=== PATIENT | male | born 1980 | race Caucasian/White ===

== ENCOUNTER 2016-10-07 06:40 | Inpatient (IN) | payer SELFPAY ==
--- NOTE | ~2016-10-07 | OP ---
[place] Of [place] [address] [place]. [address] NAME: MERI EUGENE : 82 STATUS : ADM IN PAT#: [id number] AGE: 36 ADM/REG DATE : 10/07/16 MR#: [id number] REPORT SERV DATE: 10/07/16 DICTATED BY: HARINDER WALKER DATE: 10/07/16 REPORT STATUS : Draft TRANSCRIBED BY: MODL DATE: 10/07/16 DATE OF PROCEDURE: 10/07/2016 PREOPERATIVE DIAGNOSIS: Large pericardial effusion. POSTOPERATIVE DIAGNOSIS: Large pericardial effusion. PROCEDURE: Subxiphoid pericardial window. SURGEON: Harinder Walker M.D. PRODUCTION HELPER: Dashawn. ANESTHESIA: Rodriguez. FINDINGS: Approximately 500 mL of milky pink fluid. SPECIMEN: Fluid for micro and cytology and pericardium for pathology. DRAINS: #19 Satya x1. COMPLICATIONS: None. CONDITION: Improved to PACU. PROCEDURE: After informed consent was obtained from the patient, he was brought to the operating room, laid in supine position, and general anesthesia was induced. Transesophageal echocardiogram was performed which confirmed a large circumferential pericardial effusion. The patient was prepped and draped in the normal fashion. A vertical incision was made in the subxiphoid area and dissection carried down underneath the sternum. The sternum was retracted. The Bovie electrocautery used to enter the pericardial sac. There was a quick menjivar of milky pink fluid, that was evacuated, placed into two different Lukens traps. A #19 Satya was placed into the pericardial sac by remote incision and approximate aung size of pericardium was cut for pericardial analysis. The skin, subcutaneous, and subcuticular tissue were then closed using running Vicryl and Monocryl sutures. Overall, the patient tolerated the procedure well and was transported to PACU in stable condition. CCR/MODL Harinder Walker M.D. / [id number] [facility] [place] [address] [place]. [address] NAME: MERI EUGENE : 82 STATUS : ADM IN PAT#: [id number] AGE: 36 ADM/REG DATE : 10/07/16 MR#: [id number] REPORT SERV DATE: 10/07/16 DICTATED BY: HARINDER WALKER DATE: 10/07/16 REPORT STATUS : Draft TRANSCRIBED BY: MODL DATE: 10/07/16 CC: Alycia Patricio MD
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
--- NOTE | ~2016-10-07 | CN ---
Consultation Report [facility] [address] [place]. [address] NAME: MERI EUGENE : 82 STATUS : ADM IN PAT#: [id number] AGE: 36 ADM/REG DATE : 10/07/16 MR#: [id number] REPORT SERV DATE: 10/07/16 DICTATED BY: HARINDER WALKER DATE: 10/07/16 REPORT STATUS : Draft TRANSCRIBED BY: MODDarion DATE: 10/07/16 CONSULTATION NOTE DATE OF CONSULTATION: 10/07/2016 REASON FOR CONSULT: Large pericardial effusion with tamponade. HISTORY: The patient is a 36-year-old male with history of IV drug abuse, who presented to the [facility] Emergency Department after three days of chest pain. He describes this as 8/10 chest pain with shortness of breath worse when sitting up. He has also described some fever, chills, and presyncopal episodes. After CT scan was performed which showed a large pericardial effusion, an echo followed this up showing pre-tamponade type symptoms. We are therefore consulted for emergency pericardial window. PAST MEDICAL HISTORY: Significant for hip fracture. PAST SURGICAL HISTORY: None. ALLERGIES: NO KNOWN DRUG ALLERGIES. HOME MEDICATIONS: Hydrocodone. SOCIAL HISTORY: He uses marijuana speed and IV drug use through his right forearm. Alcohol yes and smoked a half pack a day. FAMILY HISTORY: Noncontributory. REVIEW OF SYSTEMS: Otherwise negative that which was stated in the HPI. PHYSICAL EXAMINATION: VITAL SIGNS: He is currently afebrile, tachycardic with a heart rate of 121 and mildly hypotensive at 90/65. HEENT: Normocephalic, atraumatic. Overall appearance is cachectic. CHEST: Clear to auscultation bilaterally. HEART: Distant heart sounds. ABDOMEN: Soft, nontender, nondistended. EXTREMITIES: Warm with 1+ distal pulses. No clubbing, cyanosis, or edema. MUSCULOSKELETAL: Grossly intact. NEUROLOGIC: Grossly intact. STUDIES: I personally reviewed both his CT scan and an echocardiogram which showed a large 4 5 cm circumferential pericardial effusion with right ventricular collapse. Consultation Report [facility] [address] [place]. [address] NAME: MERI EUGENE : 82 STATUS : ADM IN PAT#: [id number] AGE: 36 ADM/REG DATE : 10/07/16 MR#: [id number] REPORT SERV DATE: 10/07/16 DICTATED BY: HARINDER WALKER DATE: 10/07/16 REPORT STATUS : Draft TRANSCRIBED BY: LEAH DATE: 10/07/16 IMPRESSION: Large pericardial effusion. PLAN: We will be taking him to the operating room for emergency subxiphoid pericardial window. I have explained all risks, benefits, and alternatives of surgery with him. He understands and wishes to proceed. CCR/LEAH Harinder Walker M.D. / [id number] CC: Alycia Patricio MD
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
--- NOTE | ~2016-10-07 | DS ---
Discharge Summary [facility] [address] [place]. [address] NAME: MERI EUGENE : 82 STATUS : DIS IN PAT#: [id number] AGE: 36 ADM/REG DATE : 10/07/16 MR#: [id number] REPORT SERV DATE: 10/14/16 DICTATED BY: MICHELLE GONZALEZ DATE: 10/13/16 REPORT STATUS : Draft TRANSCRIBED BY: MODL DATE: 10/13/16 ADMISSION DATE: 10/07/2016 DISCHARGE DATE: 10/13/2016 DISCHARGE DIAGNOSES: 1. Cardiac tamponade status post pericardial window by Dr. Gregory. 2. Large pericardial effusion, etiology is more likely inflammatory rather than infection, all the cultures are negative except a few growths from the broth with Enterococci is thought to be contamination. The patient has been on vancomycin during this hospitalization for about a week. 3. Increased liver function tests. 4. Polysubstance abuse. HISTORY OF PRESENT ILLNESS: This is a 36-year-old male patient, initially admitted to hospital with a large pericardial effusion with a tamponade physiology. Please see dictated H and P. HOSPITAL COURSE: He was admitted to hospital with a pericardial effusion with a history of IV drug use. The patient was seen by Dr. Ferrer and also consulted Dr. Gregory for tamponade physiology after his echocardiogram showed right side collection. Also at the same time, seen by Dr. Wild for any concern for the infectious etiology. The patient does have a mild elevation of leukocytosis. The patient was put on empirically antibiotics. He had a CAPRI. CAPRI did not show any evidence of vegetation, it showed normal heart function as well. Interestingly, his all cultures have been negative. He was kept on vancomycin treatment until the final culture came. Final culture is negative; however, a few growths of enterococci from the broth is thought to be contamination. Due to the etiology is not being so sure for the infection, inflammatory markers were sent. Inflammatory markers came back positive with MATT greater than 1:640, and rheumatoid factors positive as well. The other more blood works are still pending at this point. The patient's hepatitis panel is negative, HIV is also negative. More likely, the patient has this serositis because of the inflammatory disease. The patient has been treated and doing well, and met maximize inpatient benefit, so he will be discharged to home without any continuing antibiotics. We will like to setup an appointment with the Rheumatology for followup. The patient also has been informed to look for Rheumatology evaluation. This weekend the patient will be discharged to home, but our staff will contact the Rheumatology Associate, and try to give him an appointment. However, has a hardship that the patient has no insurance for his healthcare. Again, I was trying to set up an appointment with Rheumatology Associate and we will contact the patient. We discontinued antibiotics on discharge. The patient can continue Advil and home medications. TIME SPENT: More than 30 minutes on discharge and education. Discharge Summary [place] [id number] [place]. [address] NAME: MERI EUGENE : 82 STATUS : DIS IN PAT#: [id number] AGE: 36 ADM/REG DATE : 10/07/16 MR#: [id number] REPORT SERV DATE: 10/14/16 DICTATED BY: MICHELLE GONZALEZ DATE: 10/13/16 REPORT STATUS : Draft TRANSCRIBED BY: LEAH DATE: 10/13/16 SHAKA/LEAH Michelle Gonzalez M.D. / [id number] CC: Michelle Gonzalez M.D.
--- NOTE | ~2016-10-07 | TEE ---
Transesophageal Echocardiogram [place] [id number] [facility] [place]. [address] NAME: MERI EUGENE : 82 STATUS : ADM IN [facility]#: [id number] AGE: 36 ADM/REG DATE : 10/07/16 MR#: [id number] REPORT SERV DATE: 10/10/16 DICTATED BY: DATE: REPORT STATUS : Draft TRANSCRIBED BY: MODL DATE: 10/10/16 CHIEF COMPLAINT/REASON FOR STUDY: Bacteremia. Written informed consent obtained. Please see chart for documentation. PROCEDURE: With the assistance of my Anesthesia colleagues, Mr. Eugene was sedated for the procedure. The transesophageal probe was placed with one attempt without complications. 1. The aortic valve was trileaflet and opened adequately. There was no significant aortic valvular regurgitation. There was no evidence of valvular vegetations or stenosis. 2. The left ventricular systolic function was grossly normal with a visually estimated ejection fraction greater than 50%. The left ventricular chamber size appeared normal. 3. The mitral and tricuspid valve leaflets open normally. There was no evidence of mitral or tricuspid valvular vegetations. There was trivial mitral regurgitation via color flow Doppler. There was trivial tricuspid regurgitation. 4. The left atrium and right atrium were both visualized. There was no evidence of right atrium, left atrium, or left atrial appendage thrombus present. 5. The right ventricle appeared normal in size and systolic function. 6. The pulmonary valve was well visualized. There was no significant pulmonary valvular vegetations noted. 7. There was a trivial pericardial effusion without hemodynamic significance. 8. The left-sided pleural effusion was noted. IMPRESSION: 1. Normal left ventricular systolic function with a visually estimated ejection fraction greater than 50%. 2. No evidence of vegetations or infected endocarditis. 3. Left-sided pleural effusion as detailed above. [facility]/MODL Jaja Martin M.D. / [id number] CC: Michelle Gonzalez M.D.
--- NOTE | ~2016-10-07 | CN ---
Consultation Report [place] [id number] [facility] [place]. [address] NAME: MILAD EUGENE : 82 STATUS : ADM IN [facility]#: [id number] AGE: 36 ADM/REG DATE : 10/07/16 MR#: [id number] REPORT SERV DATE: 10/07/16 DICTATED BY: ALEXEY FERRER DATE: 10/07/16 REPORT STATUS : Draft TRANSCRIBED BY: MODL DATE: 10/07/16 CARDIOLOGY CONSULTATION DATE OF CONSULTATION: Requested by Dr. Patricio with the hospitalist service. INDICATIONS: Pericardial effusion and injection drug use. HISTORY OF PRESENT ILLNESS: Milad Eugene is a 36-year-old man who presented to the emergency room today with severe chest pain and shortness of breath. He was found to be tachycardic. His speech is somewhat difficult to understand. He reports symptoms have been ongoing for several days. He has a history of polysubstance abuse and is apparently actively using drugs. Pain does appear to be worsened with change in position and he feels better sitting in an upright leaning forward position. He has not had syncope. He also complains of constipation and some chills. PAST MEDICAL HISTORY: Injection drug use. SOCIAL HISTORY: Active drug use and smokes cigarettes. Unclear whether he drinks alcohol or not. FAMILY HISTORY: Noncontributory to the present issue. REVIEW OF SYSTEMS: As per the HPI. Otherwise, all the review of systems is negative. PRESENT MEDICATIONS: Albuterol, aspirin, hydrocodone, and Advil. ALLERGIES: NONE KNOWN. PHYSICAL EXAMINATION: VITAL SIGNS: Blood pressure 117/75, heart rate is 137, respiratory rate is 22, and oxygen saturations 100% on presentation on room air, then reported more recently 98% on 2 L. 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 EYES: Sclerae anicteric, no arcus senilis. MOUTH: Oral mucosa moist, lips acyanotic. NECK: Jugular venous pressure normal, no carotid bruits. LUNGS: Diminished breath sounds in the bases. Poor inspiratory effort. CARDIAC: Regular rhythm. Tachycardic. ABDOMEN: Soft, nondistended, nontender. EXTREMITIES: No edema. SKIN: Warm and dry. NEURO/PSYCH: Alert and oriented, nonfocal, mood appropriate. Consultation Report [place] [id number] [facility] [place]. [address] NAME: MILAD EUGENE : 82 STATUS : ADM IN PAT#: [id number] AGE: 36 ADM/REG DATE : 10/07/16 MR#: [id number] REPORT SERV DATE: 10/07/16 DICTATED BY: ALEXEY FERRER DATE: 10/07/16 REPORT STATUS : Draft TRANSCRIBED BY: MODL DATE: 10/07/16 DATA: White count 13.7, hemoglobin 12.7, platelets 504. Potassium 3.6, magnesium 1.9, creatinine 1.0. Troponin is negative. EKG is sinus tachycardia at 132 beats per minute with nonspecific T changes. Chest x-ray shows cardiomegaly. CTA chest shows no PE, but there was a large pericardial effusion, 3 cm at maximum dimension with pericardial enhancement consistent with inflammation. IMPRESSION: 1. Large pericardial effusion. The patient with chest pain, shortness of breath, and sinus tachycardia. 2. Injection drug abuse/polysubstance abuse. RECOMMENDATIONS: Echocardiogram today. CT Surgery consult. Consider drain. Blood cultures. Discussed with the patient. All questions answered. VINICIO/LEAH Alexey Ferrer M.D. / [id number] CC: Alycia Patricio MD NO PCP
[2016-10-07 06:37] LABS: BASOPHILS 0.1 %; BASOPHILS ABSOLUTE 0.01 10/3/uL (0.0-0.16); EOSINOPHILS 0.1 %; EOSINOPHILS ABSOLUTE 0.02 10/3/uL (0.0-0.53); HEMATOCRIT 37.4 % (40.0-51.0); HEMOGLOBIN 12.7 g/dL (13.6-17.8); IMMATURE GRANULOCYTES 0.2 %; IMMATURE GRANULOCYTES ABSOLUTE 0.03 10/3/uL (0.0-0.11); LYMPHOCYTES 5.1 %; MEAN CORPUSCULAR HEMOGLOB 29.7 pg (26.0-34.0); MEAN CORPUSCULAR VOLUME 87.6 fL (80-100); MEAN PLATELET VOLUME 8.8 fL (9.2-13.0); MONOCYTES 12.9 %; MONOCYTES ABSOLUTE 1.77 10/3/uL (0.21-1.20); NEUTROPHILS 81.6 %; NEUTROPHILS ABSOLUTE 11.16 10/3/uL (2.02-8.40); PLATELET COUNT 504 10/3/uL (150-400); RBC DISTRIBUTION WIDTH 13.2 % (12.0-16.0); RED CELL COUNT 4.27 10/6/uL (4.7-6.1); WHITE BLOOD CELLS 13.7 10/3/uL (4.5-10.5)
[2016-10-07 06:38] LABS: ER CBC TAT 0 Hrs 00 Mins; MANUAL DIFF NO %
[2016-10-07 06:46] LABS: INTERNATIONAL NORMAL RATI 1.3 UNITS (-); PARTIAL THROMBO TIME 38.4 SEC (22.5-37.2); PROTIME (NOT ORD) 15.7 SEC (12.0-14.5)
[2016-10-07 06:55] LABS: BUN (BLOOD UREA NITROGEN) 12 MG/DL (6-23); CALCIUM, SERUM 8.6 MG/DL (8.5-10.4); CHEST PAIN PROFILE TAT 0 Hrs 00 Mins; CHLORIDE, SERUM 97 MMOL/L (96-112); CO2 (CARBON DIOXIDE) 27 MMOL/L (24-34); GFR AFRICAN AMERICAN 113 ML/MIN (>=60); GFR NON AFRICAN AMERICAN 97 ML/MIN (>=60); GLUCOSE, SERUM 149 MG/DL (60-99); POTASSIUM, SERUM 3.6 MMOL/L (3.5-5.3); SODIUM, SERUM 136 MMOL/L (135-148); TROPONIN I <0.02 NG/ML (<0.05)
[2016-10-07 06:56] LABS: D-DIMER QUANTITATIVE 6.38 ug/mLFEU (< 0.50)
[2016-10-07] MEDS ORDERED: NORCO1 TA2 PO (09:59)
[2016-10-07] MEDS ORDERED: ADVIL PO (10:00)
[2016-10-07] MEDS ORDERED: PROAIR HFA PO (10:00)
[2016-10-07] MEDS ORDERED: ASAB PO (10:00)
[2016-10-08 04:13] LABS: BASOPHILS 0.1 %; BASOPHILS ABSOLUTE 0.01 10/3/uL (0.0-0.16); EOSINOPHILS 0.3 %; EOSINOPHILS ABSOLUTE 0.04 10/3/uL (0.0-0.53); HEMOGLOBIN 11.2 g/dL (13.6-17.8); IMMATURE GRANULOCYTES 0.3 %; IMMATURE GRANULOCYTES ABSOLUTE 0.04 10/3/uL (0.0-0.11); LYMPHOCYTES 10.2 %; LYMPHOCYTES ABSOLUTE 1.41 10/3/uL (0.67-4.30); MEAN CORPUS HGB CONC 33.3 g/dL (32.0-36.0); MEAN CORPUSCULAR HEMOGLOB 28.6 pg (26.0-34.0); MEAN CORPUSCULAR VOLUME 85.9 fL (80-100); MEAN PLATELET VOLUME 8.8 fL (9.2-13.0); MONOCYTES 6.5 %; NEUTROPHILS 82.6 %; NEUTROPHILS ABSOLUTE 11.46 10/3/uL (2.02-8.40); PLATELET COUNT 391 10/3/uL (150-400); RBC DISTRIBUTION WIDTH 13.5 % (12.0-16.0); RED CELL COUNT 3.91 10/6/uL (4.7-6.1); WHITE BLOOD CELLS 13.9 10/3/uL (4.5-10.5)
[2016-10-08 04:14] LABS: HEMATOCRIT 33.6 % (40.0-51.0); MANUAL DIFF NO %
[2016-10-08 04:24] LABS: BUN (BLOOD UREA NITROGEN) 10 MG/DL (6-23); CHLORIDE, SERUM 102 MMOL/L (96-112); CO2 (CARBON DIOXIDE) 25 MMOL/L (24-34); CREATININE 0.95 MG/DL (0.70-1.30); GFR AFRICAN AMERICAN 120 ML/MIN (>=60); GFR NON AFRICAN AMERICAN 103 ML/MIN (>=60); GLUCOSE, SERUM 144 MG/DL (60-99); SODIUM, SERUM 136 MMOL/L (135-148)
[2016-10-09 04:47] LABS: BASOPHILS 0.1 %; BASOPHILS ABSOLUTE 0.01 10/3/uL (0.0-0.16); EOSINOPHILS 0.4 %; EOSINOPHILS ABSOLUTE 0.05 10/3/uL (0.0-0.53); HEMATOCRIT 34.1 % (40.0-51.0); HEMOGLOBIN 11.4 g/dL (13.6-17.8); IMMATURE GRANULOCYTES 0.3 %; IMMATURE GRANULOCYTES ABSOLUTE 0.04 10/3/uL (0.0-0.11); LYMPHOCYTES 11.2 %; LYMPHOCYTES ABSOLUTE 1.34 10/3/uL (0.67-4.30); MEAN CORPUS HGB CONC 33.4 g/dL (32.0-36.0); MEAN CORPUSCULAR HEMOGLOB 29.4 pg (26.0-34.0); MEAN CORPUSCULAR VOLUME 87.9 fL (80-100); MEAN PLATELET VOLUME 8.8 fL (9.2-13.0); MONOCYTES 9.9 %; MONOCYTES ABSOLUTE 1.19 10/3/uL (0.21-1.20); NEUTROPHILS 78.1 %; NEUTROPHILS ABSOLUTE 9.38 10/3/uL (2.02-8.40); PLATELET COUNT 393 10/3/uL (150-400); RBC DISTRIBUTION WIDTH 13.6 % (12.0-16.0); RED CELL COUNT 3.88 10/6/uL (4.7-6.1)
[2016-10-09 04:48] LABS: MANUAL DIFF NO %
[2016-10-09 04:54] LABS: BUN (BLOOD UREA NITROGEN) 10 MG/DL (6-23); CALCIUM, SERUM 7.6 MG/DL (8.5-10.4); CHLORIDE, SERUM 102 MMOL/L (96-112); CO2 (CARBON DIOXIDE) 25 MMOL/L (24-34); CREATININE 0.79 MG/DL (0.70-1.30); GFR AFRICAN AMERICAN 135 ML/MIN (>=60); GFR NON AFRICAN AMERICAN 116 ML/MIN (>=60); POTASSIUM, SERUM 3.8 MMOL/L (3.5-5.3); SODIUM, SERUM 136 MMOL/L (135-148)
[2016-10-09 04:58] LABS: GLUCOSE, SERUM 101 MG/DL (60-99)
[2016-10-10 06:22] LABS: BASOPHILS 0.1 %; BASOPHILS ABSOLUTE 0.02 10/3/uL (0.0-0.16); EOSINOPHILS 0.4 %; EOSINOPHILS ABSOLUTE 0.06 10/3/uL (0.0-0.53); IMMATURE GRANULOCYTES 0.3 %; IMMATURE GRANULOCYTES ABSOLUTE 0.04 10/3/uL (0.0-0.11); LYMPHOCYTES 9.3 %; LYMPHOCYTES ABSOLUTE 1.25 10/3/uL (0.67-4.30); MEAN CORPUS HGB CONC 34.4 g/dL (32.0-36.0); MEAN CORPUSCULAR HEMOGLOB 29.6 pg (26.0-34.0); MEAN PLATELET VOLUME 9.1 fL (9.2-13.0); MONOCYTES 8.4 %; MONOCYTES ABSOLUTE 1.13 10/3/uL (0.21-1.20); NEUTROPHILS 81.5 %; NEUTROPHILS ABSOLUTE 10.92 10/3/uL (2.02-8.40); PLATELET COUNT 400 10/3/uL (150-400); RBC DISTRIBUTION WIDTH 13.9 % (12.0-16.0); RED CELL COUNT 3.72 10/6/uL (4.7-6.1); WHITE BLOOD CELLS 13.4 10/3/uL (4.5-10.5)
[2016-10-10 06:24] LABS: INTERNATIONAL NORMAL RATI 1.2 UNITS (-); PROTIME (NOT ORD) 14.9 SEC (12.0-14.5)
[2016-10-10 06:28] LABS: MANUAL DIFF NO %
[2016-10-10 06:36] LABS: BUN (BLOOD UREA NITROGEN) 10 MG/DL (6-23); CALCIUM, SERUM 7.8 MG/DL (8.5-10.4); CHLORIDE, SERUM 98 MMOL/L (96-112); CO2 (CARBON DIOXIDE) 23 MMOL/L (24-34); CREATININE 0.83 MG/DL (0.70-1.30); GFR AFRICAN AMERICAN 132 ML/MIN (>=60); GFR NON AFRICAN AMERICAN 114 ML/MIN (>=60); GLUCOSE, SERUM 88 MG/DL (60-99); POTASSIUM, SERUM 3.7 MMOL/L (3.5-5.3); SODIUM, SERUM 133 MMOL/L (135-148)
[2016-10-11 06:55] LABS: DIRECT BILIRUBIN 0.2 MG/DL (0.0-0.4); INDIRECT BILIRUBIN(NOT ORDER) 0.4 MG/DL (0.1-0.9); TOTAL BILIRUBIN 0.6 MG/DL (0-1.2); TOTAL PROTEIN 6.4 G/DL (6.0-8.5)
[2016-10-11 10:19] LABS: HEPATITIS B SURFACE ANTIGEN NON-REACTIVE (NON-REACT)
[2016-10-11 10:32] LABS: HEPATITIS C ANTIBODY NON-REACTIVE (NON-REACT)
[2016-10-11 10:33] LABS: HEPATITIS B CORE AB IGM NON-REACTIVE (NON-REAC); HIV COMBO NON-REACTIVE (NON REAC)
[2016-10-11 10:34] LABS: HEP A ANTIBODY IGM NON-REACTIVE (NON-REACT)
[2016-10-12 05:21] LABS: BASOPHILS 0.1 %; BASOPHILS ABSOLUTE 0.01 10/3/uL (0.0-0.16); EOSINOPHILS 0.4 %; EOSINOPHILS ABSOLUTE 0.05 10/3/uL (0.0-0.53); HEMATOCRIT 31.9 % (40.0-51.0); IMMATURE GRANULOCYTES 0.6 %; IMMATURE GRANULOCYTES ABSOLUTE 0.07 10/3/uL (0.0-0.11); LYMPHOCYTES ABSOLUTE 0.75 10/3/uL (0.67-4.30); MEAN CORPUS HGB CONC 34.5 g/dL (32.0-36.0); MEAN CORPUSCULAR HEMOGLOB 29.3 pg (26.0-34.0); MEAN CORPUSCULAR VOLUME 84.8 fL (80-100); MEAN PLATELET VOLUME 9.1 fL (9.2-13.0); MONOCYTES 6.5 %; MONOCYTES ABSOLUTE 0.81 10/3/uL (0.21-1.20); NEUTROPHILS 86.4 %; NEUTROPHILS ABSOLUTE 10.86 10/3/uL (2.02-8.40); PLATELET COUNT 342 10/3/uL (150-400); RBC DISTRIBUTION WIDTH 13.9 % (12.0-16.0); RED CELL COUNT 3.76 10/6/uL (4.7-6.1); WHITE BLOOD CELLS 12.6 10/3/uL (4.5-10.5)
[2016-10-12 05:23] LABS: MANUAL DIFF NO %
[2016-10-12 13:20] LABS: ANA PATTERN SPECKLED; ANA TITER >1:640 TITER
[2016-10-13 04:22] LABS: BASOPHILS 0.1 %; BASOPHILS ABSOLUTE 0.01 10/3/uL (0.0-0.16); EOSINOPHILS 0.2 %; EOSINOPHILS ABSOLUTE 0.02 10/3/uL (0.0-0.53); HEMATOCRIT 32.9 % (40.0-51.0); HEMOGLOBIN 11.5 g/dL (13.6-17.8); IMMATURE GRANULOCYTES 0.7 %; IMMATURE GRANULOCYTES ABSOLUTE 0.09 10/3/uL (0.0-0.11); LYMPHOCYTES 4.6 %; LYMPHOCYTES ABSOLUTE 0.58 10/3/uL (0.67-4.30); MEAN CORPUSCULAR HEMOGLOB 29.6 pg (26.0-34.0); MEAN CORPUSCULAR VOLUME 84.6 fL (80-100); MEAN PLATELET VOLUME 9.7 fL (9.2-13.0); MONOCYTES ABSOLUTE 0.37 10/3/uL (0.21-1.20); NEUTROPHILS 91.4 %; NEUTROPHILS ABSOLUTE 11.42 10/3/uL (2.02-8.40); PLATELET COUNT 317 10/3/uL (150-400); RED CELL COUNT 3.89 10/6/uL (4.7-6.1); WHITE BLOOD CELLS 12.5 10/3/uL (4.5-10.5)
[2016-10-13 04:23] LABS: MANUAL DIFF NO %
[2016-10-13 04:37] LABS: CALCIUM, SERUM 7.5 MG/DL (8.5-10.4); CHLORIDE, SERUM 98 MMOL/L (96-112); CO2 (CARBON DIOXIDE) 25 MMOL/L (24-34); CREATININE 1.03 MG/DL (0.70-1.30); GFR AFRICAN AMERICAN 109 ML/MIN (>=60); GFR NON AFRICAN AMERICAN 94 ML/MIN (>=60); GLUCOSE, SERUM 101 MG/DL (60-99); POTASSIUM, SERUM 3.7 MMOL/L (3.5-5.3); SODIUM, SERUM 135 MMOL/L (135-148)
[2016-10-13 04:38] LABS: BUN (BLOOD UREA NITROGEN) 17 MG/DL (6-23)
[2016-10-13 12:35] LABS: ASCORBIC ACID (UR NOT ORDER) NEG (NEG); BILIRUBIN, URINE NEGATIVE (NEG); KETONE, URINE NEGATIVE (NEG); LEUKOCYTE ESTERASE(NOT OR NEG (NEG); WBC (NOT ORDERED) (RFLEX) 1 (0-5)
[2016-10-15 22:33] LABS: ANCA <1:20 (()); MYELOPEROXIDASE ANTIBODY <0.2 AI (<1.0); PROTEINASE 3 ANTIBODY 0.3 AI (<1.0)
== END 2016-10-13 14:35 | disposition home or self-care (01) | DRG 270 ==
LOC: ER 06:40 → 5NO 11:54 → CVICU 14:14 → 5NO 10-08 10:33
PROVIDERS: Anesthesiology; Hospitalist; Internal Medicine; Internal Medicine Cardiovascular Disease; Internal Medicine Infectious Disease; Physician Assistant; Thoracic Surgery (Cardiothoracic Vascular Surgery)
PROC: 0W9D00Z Drainage of Pericardial Cavity with Drainage Device, Open Approach (ICD-10-PCS; principal; 2016-10-07 14:00)
DX: I31.3 Pericardial effusion (noninflammatory) (principal); A41.9 Sepsis, unspecified organism; F19.20 Other psychoactive substance dependence, uncomplicated; F14.20 Cocaine dependence, uncomplicated; I31.9 Disease of pericardium, unspecified; F12.20 Cannabis dependence, uncomplicated; F17.210 Nicotine dependence, cigarettes, uncomplicated
CPT/HCPCS: 36415; 71010; 71020; 71275; 76700; 80048; 80074; 80076; 80202; 81001; 83516; 83516-59; 83735; 84484; 85025; 85379; 85610; 85730; 86039; 86226; 86255; 86431; 86850; 86900; 86901; 87015; 87040; 87070; 87075; 87077; 87102; 87116; 87186; 87205; 87389; 87641; 88112; 88305; 93005; 93306; 93308; 93312; 93320; 93321; 93325; 96374; 96375; 99285; A9270-GY; J2250; J2370; J2405; J2710; J3010; J3370; P9045; Q9967